=== PATIENT | female | born 1990 | race Hispanic/Latino ===

== ENCOUNTER 2018-12-12 15:24 | Emergency (ER) | payer SELFPAY ==
[2018-12-12] MEDS ORDERED: IBUPROFEN 600 MG TABLET ONE (16:52)
[2018-12-12] MEDS ORDERED: TETANUS/DIPHTHERIA TOXOID [ADULT] 0.5 ML VIAL IM ONE (17:44)
== END 2018-12-12 17:50 | disposition home or self-care (01) ==
LOC: EDH 15:24
DX: S13.8XXA Sprain of joints and ligaments of other parts of neck, initial encounter (principal); S39.012A Strain of muscle, fascia and tendon of lower back, initial encounter; S80.211A Abrasion, right knee, initial encounter; S50.311A Abrasion of right elbow, initial encounter; E11.9 Type 2 diabetes mellitus without complications; W01.0XXA Fall on same level from slipping, tripping and stumbling without subsequent striking against object, initial encounter; Y93.89 Activity, other specified; Y92.89 Other specified places as the place of occurrence of the external cause; Y99.8 Other external cause status
CPT/HCPCS: 72040; 72100; 81025; 90471; 90714

== ENCOUNTER 2019-12-07 14:26 | Emergency (ER) | payer OTHER, SELFPAY | END 2019-12-07 15:37 | disposition home or self-care (01) | LOC: EDH 14:26 | DX: R50.81 Fever presenting with conditions classified elsewhere (principal); Z20.828 Contact with and (suspected) exposure to other viral communicable diseases; M79.10 Myalgia, unspecified site; E11.9 Type 2 diabetes mellitus without complications; Z79.899 Other long term (current) drug therapy | CPT/HCPCS: 99281 ==

== ENCOUNTER 2019-12-14 23:01 | Inpatient (IN) | payer OTHER, SELFPAY ==
[~2019-12-14] VITALS: Ht 157.5 cm; Wt 115.5 kg
[2019-12-15 01:20] LABS: BASOPHILS % (AUTO) 0.1 % (0.0-5.0); HEMATOCRIT 42.1 % (36-48); LYMPHOCYTES % (AUTO) 24.9 % (21.0-51.0); MEAN CORPUSCULAR HEMOGLOBIN 29.3 pg (27.0-33.0); MEAN CORPUSCULAR HGB CONC 33.5 g/dL (32.0-36.0); MEAN CORPUSCULAR VOLUME 87.3 fL (79-99); NEUTROPHILS % (AUTO) 67.9 % (40.0-77.0); PLATELET COUNT (AUTO) 303 K/uL (130-400); RED BLOOD CELL COUNT(AUTO) 4.82 MIL/uL (4.00-5.50); RED CELL DISTRIBUTION WIDTH 12.3 % (11.0-15.5); WHITE BLOOD COUNT (AUTO) 7.6 K/uL (4.8-10.8)
[2019-12-15 01:36] LABS: CARBON DIOXIDE 31 mmol/L (21-32); CHLORIDE 97 mmol/L (101-111); CREATININE 0.7 mg/dL (0.5-1.5); GLOMERULAR FILTR. RATE CALC 105 mL/min (>60); GLUCOSE,RANDOM 158 mg/dL (70-105); POTASSIUM 3.6 mmol/L (3.5-5.1); SODIUM SERUM 138 mmol/L (136-145); UREA NITROGEN, BLOOD 6 mg/dL (7-18)
[2019-12-15 01:40] LABS: INR 0.92 (0.85-1.15); PARTIAL THROMBOPLASTIN TIME 30.7 SEC (26.3-35.5)
[2019-12-15 01:49] LABS: ALANINE AMINOTRANSFERASE 56 U/L (12-78); ALBUMIN 3.5 g/dL (3.5-5.0); ASPARTATE AMINOTRANSFERASE 24 U/L (10-37); BILIRUBIN,TOTAL 0.5 mg/dL (0.2-1.0); CREATINE KINASE, TOTAL 20 U/L (21-232); MYOGLOBIN 9 ng/mL (10-92); TROPONIN I < 0.04 ng/mL (0.00-0.06)
[2019-12-15 01:53] LABS: ABG BASE EXCESS -0.2 mmol/L (-2.0-3.0); ABG PCO2 34 mmHg (32-45)
[2019-12-15] MEDS ORDERED: DEXAMETHASONE SOD PHOSPHATE 10MG/ML 1ML VIAL ONE (03:42)
[2019-12-15] MEDS ORDERED: ENOXAPARIN SODIUM 30 MG/0.3 ML SQ ONE (03:43)
[2019-12-15] MEDS ORDERED: ACETAMINOPHEN 325 MG TAB PO PRN ×2 (04:00)
[2019-12-15] MEDS ORDERED: LACTULOSE 20 GM/30 ML UDCUP PO PRN (04:00)
[2019-12-15] MEDS ORDERED: HYDRALAZINE HCL 20 MG/ML VIAL IV PRN (04:00)
[2019-12-15] MEDS ORDERED: ONDANSETRON HCL 4 MG/2 ML VIAL IV PRN (04:00)
[2019-12-15 04:26] LABS: BILIRUBIN,URINE Small (NEGATIVE); COLOR,URINE Dark Yellow (YELLOW); GLUCOSE, URINE (UA) Negative (NEGATIVE); KETONES,URINE 15 mg/dL (NEGATIVE); LEUKOCYTE ESTERASE ,URINE Trace (NEGATIVE); NITRATE,URINE Negative (NEGATIVE); OCCULT BLOOD,URINE Negative (NEGATIVE); PROTEIN,URINE 300 mg/dL (NEGATIVE)
[2019-12-15 04:27] LABS: APPEARANCE,URINE SLIGHTLY CLOUDY (CLEAR)
[2019-12-15 04:42] LABS: BACTERIA,URINE Few /HPF (None Seen); MUCUS,URINE Few LPF (None Seen); RBC,URINE 0-1 /HPF (0-1)
[2019-12-15] MEDS ORDERED: METHYLPREDNISOLONE SOD SUCC 40MG/ML 1ML ONE ×3 (05:42→21:38)
[2019-12-15] MEDS ORDERED: AZITHROMYCIN 500MG+NS 250ML 250 ML IV ONE (05:42)
[2019-12-15] MEDS ORDERED: CEFTRIAXONE SODIUM 1 GM ONE (05:43)
[2019-12-15] MEDS ORDERED: IPRATROPIUM/ALBUTEROL SULFATE 3 ML SOLUTION IH SCH (06:00)
[2019-12-15] MEDS ORDERED: METHYLPREDNISOLONE SOD SUCC 40MG/ML 1ML IVP SCH (06:00)
[2019-12-15] MEDS ORDERED: LACTOBACILLUS RHAMNOSUS GG 1 EACH CAP.SPRINK PO SCH (07:00)
[2019-12-15] MEDS ORDERED: FAMOTIDINE 20MG TAB 20 MG TAB PO SCH (09:00)
[2019-12-15] MEDS ORDERED: ENOXAPARIN SODIUM 40 MG/0.4 ML SYRINGE SQ SCH (09:00)
[2019-12-15] MEDS ORDERED: METF500S7 PO (11:33)
[2019-12-15] MEDS ORDERED: LISI-613 PO (11:33)
[2019-12-15] MEDS ORDERED: ENOXAPARIN SODIUM 60 MG/0.6 ML SQ ONE (13:15)
[2019-12-15] MEDS ORDERED: FAMOTIDINE 20MG TAB 20 MG TAB ONE ×2 (13:16→21:38)
[2019-12-15] MEDS ORDERED: ALBUTEROL INHALER 90MCG/INH IH ONE (14:27)
--- NOTE | 2019-12-15 15:42 | NUR ---
DCP: HOME WITH FAMILY Sw unable to meet with pt who is in the covut unit. Sw called pt's mother Any Hayes [phone]. Per mother, pt lives with her father Reji Hayes and her siblings and a niece. Pt works at [employer] and is independent of all ADLS, no DME or in home care services reports mother Pt is seen at [facility] for medical care and meds. Plan is pt to [place] to father's home [place]. Addendum: 12/15/19 at 1547 by IRENA GALAN Amended: Links added.
[2019-12-15] MEDS ORDERED: INSULIN HUMULIN R 100 UNIT/ML 3ML ONE (21:39)
[2019-12-15] MEDS ORDERED: ACETAMINOPHEN EXTRA STRENGTH 500 MG TABLET ONE (23:27)
[2019-12-16] MEDS ORDERED: CEFTRIAXONE SODIUM 1 GM ONE (04:33)
[2019-12-16] MEDS ORDERED: METHYLPREDNISOLONE SOD SUCC 40MG/ML 1ML ONE (04:33)
[2019-12-16 05:22] LABS: HEMATOCRIT 38.4 % (36-48); LYMPHOCYTES % (AUTO) 30.6 % (21.0-51.0); MEAN CORPUSCULAR HEMOGLOBIN 28.7 pg (27.0-33.0); MEAN CORPUSCULAR HGB CONC 33.1 g/dL (32.0-36.0); MEAN CORPUSCULAR VOLUME 86.9 fL (79-99); MONOCYTES % (AUTO) 10.4 % (3.0-13.0); NEUTROPHILS % (AUTO) 58.3 % (40.0-77.0); PLATELET COUNT (AUTO) 338 K/uL (130-400); RED BLOOD CELL COUNT(AUTO) 4.42 MIL/uL (4.00-5.50); RED CELL DISTRIBUTION WIDTH 12.3 % (11.0-15.5)
[2019-12-16 05:51] LABS: CREATININE 0.6 mg/dL (0.5-1.5); MAGNESIUM 2.8 mg/dL (1.80-2.40); PHOSPHORUS 4.1 mg/dL (2.5-4.9); POTASSIUM 3.5 mmol/L (3.5-5.1)
[2019-12-16] MEDS ORDERED: FAMOTIDINE 20MG TAB 20 MG TAB ONE (08:21)
[2019-12-16] MEDS ORDERED: AZITHROMYCIN 500MG+NS 250ML 250 ML IV ONE (08:21)
[2019-12-16] MEDS ORDERED: INSULIN HUMULIN R 100 UNIT/ML 3ML ONE (13:25)
[2019-12-16] MEDS ORDERED: ENOXAPARIN SODIUM 60 MG/0.6 ML SQ ONE (13:47)
[2019-12-16] MEDS ORDERED: INSULIN GLARGINE 100 UNITS/ML 10 ML VIAL SQ SCH (19:00)
[2019-12-17] MEDS ORDERED: GLUCAGON 1MG KIT 1 MG ML IM PRN (07:15)
[2019-12-17] MEDS ORDERED: DEXTROSE 50%-WATER 50 ML DISP.SYRIN IV PRN (07:15)
[2019-12-17 07:20] LABS: BASOPHILS % (AUTO) 0.1 % (0.0-5.0); HEMATOCRIT 37.9 % (36-48); LYMPHOCYTES % (AUTO) 26.4 % (21.0-51.0); MEAN CORPUSCULAR HEMOGLOBIN 28.2 pg (27.0-33.0); MEAN CORPUSCULAR HGB CONC 32.5 g/dL (32.0-36.0); MEAN CORPUSCULAR VOLUME 86.9 fL (79-99); MONOCYTES % (AUTO) 9.6 % (3.0-13.0); PLATELET COUNT (AUTO) 403 K/uL (130-400); RED BLOOD CELL COUNT(AUTO) 4.36 MIL/uL (4.00-5.50); RED CELL DISTRIBUTION WIDTH 12.1 % (11.0-15.5); WHITE BLOOD COUNT (AUTO) 8.1 K/uL (4.8-10.8)
[2019-12-17] MEDS ORDERED: INSULIN GLARGINE 100 UNITS/ML 10 ML VIAL SQ SCH (07:30)
[2019-12-17] MEDS ORDERED: INSULIN HUMULIN R 100 UNIT/ML 3ML SQ SCH (07:30)
[2019-12-17 07:39] LABS: CREATININE 0.7 mg/dL (0.5-1.5); POTASSIUM 3.6 mmol/L (3.5-5.1)
[2019-12-17] MEDS ORDERED: ENOXAPARIN SODIUM 60 MG/0.6 ML SQ ONE (08:48)
[2019-12-17] MEDS ORDERED: INSULIN HUMULIN R 100 UNIT/ML 3ML ONE ×2 (08:50→20:51)
[2019-12-18] MEDS ORDERED: AZITHROMYCIN 500MG+NS 250ML 250 ML IV ONE (00:03)
[2019-12-18] MEDS ORDERED: METHYLPREDNISOLONE SOD SUCC 40MG/ML 1ML ONE ×2 (00:03→05:04)
[2019-12-18] MEDS ORDERED: CEFTRIAXONE SODIUM 1 GM ONE (00:03)
[2019-12-18] MEDS ORDERED: LORAZEPAM 2 MG/ML 1 ML VIAL ONE (01:25)
[2019-12-18 03:52] LABS: BASOPHILS % (AUTO) 0.3 % (0.0-5.0); EOSINOPHILS % (AUTO) 0.5 % (0.0-8.0); HEMATOCRIT 38.4 % (36-48); LYMPHOCYTES % (AUTO) 44.7 % (21.0-51.0); MEAN CORPUSCULAR HEMOGLOBIN 28.6 pg (27.0-33.0); MEAN CORPUSCULAR HGB CONC 33.3 g/dL (32.0-36.0); MEAN CORPUSCULAR VOLUME 85.9 fL (79-99); NEUTROPHILS % (AUTO) 46.6 % (40.0-77.0); PLATELET COUNT (AUTO) 391 K/uL (130-400); RED BLOOD CELL COUNT(AUTO) 4.47 MIL/uL (4.00-5.50); WHITE BLOOD COUNT (AUTO) 7.6 K/uL (4.8-10.8)
[2019-12-18 04:08] LABS: CREATININE 0.7 mg/dL (0.5-1.5); POTASSIUM 3.1 mmol/L (3.5-5.1)
[2019-12-18] MEDS ORDERED: INSULIN HUMULIN R 100 UNIT/ML 3ML ONE ×2 (05:05→11:35)
[2019-12-18] MEDS: CEFTRIAXONE SODIUM 1 GM IV SCH (05:30)
[2019-12-18] MEDS: AZITHROMYCIN 500MG+NS 250ML 250 ML IV SCH (06:00)
[2019-12-18] MEDS ORDERED: REMDESIVIR (INVESTIGATIONAL) 100 MG in SODIUM CHLORIDE 0.9% 250 ML IV SCH (08:45)
[2019-12-18] MEDS: LACTOBACILLUS RHAMNOSUS GG 1 EACH CAP.SPRINK PO SCH (09:00)
[2019-12-18] MEDS: ASCORBIC ACID 500 MG TAB PO SCH (09:00)
[2019-12-18] MEDS: ENOXAPARIN SODIUM 60 MG/0.6 ML SQ SCH (09:00)
[2019-12-18] MEDS: ZINC SULFATE 220 CAPSULE PO SCH (09:00)
[2019-12-18] MEDS ORDERED: FAMOTIDINE/PF 20 MG/2 ML VIAL IV ONE (09:28)
[2019-12-18] MEDS ORDERED: ENOXAPARIN SODIUM 40 MG/0.4 ML SYRINGE SQ ONE (09:28)
[2019-12-18 09:59] LABS: HEMOGLOBIN A1C 9.9 % (4.0-6.0)
[2019-12-18] MEDS: INSULIN HUMULIN R 100 UNIT/ML 3ML SQ SCH ×7 (11:30→22:07)
[2019-12-18 12:00] VITALS: BP 112/68
[2019-12-18] MEDS: ALBUTEROL INHALER 90MCG/INH IH SCH ×2 (12:00→17:51)
--- NOTE | 2019-12-18 16:00 | NUR ---
DR. HERRERA AWARE OF CASE STATES WILL SEE LATER.
[2019-12-18 16:19] VITALS: BP 110/62
[2019-12-18 19:11] VITALS: BP 112/64
[2019-12-18] MEDS: METHYLPREDNISOLONE SOD SUCC 40MG/ML 1ML IVP SCH (21:51)
[2019-12-18] MEDS: PANTOPRAZOLE SODIUM 40 MG TABLET.DR PO SCH (21:51)
[2019-12-18] MEDS: INSULIN GLARGINE 100 UNITS/ML 10 ML VIAL SQ SCH (21:55)
[2019-12-18 23:08] VITALS: BP 105/67
[2019-12-19] MEDS ORDERED: MAGNESIUM 2GM PREMIX 50ML 50 ML IV PRN (03:15)
[2019-12-19] MEDS ORDERED: POTASSIUM CHLORIDE 10% ELIXIR 20 MEQ/15 ML UDCUP PO PRN (03:15)
[2019-12-19] MEDS ORDERED: POTASSIUM CHLORIDE 20MEQ/100ML 100 ML IV PRN (03:15)
[2019-12-19] MEDS ORDERED: POTASSIUM CHLORIDE 20 MEQ ERTAB PO PRN (03:15)
[2019-12-19] MEDS ORDERED: LIDOCAINE HCL-MPF 1% 2ML VIAL IJ PRN (03:15)
[2019-12-19 03:56] VITALS: BP 126/68
[2019-12-19] MEDS: AZITHROMYCIN 500MG+NS 250ML 250 ML IV SCH (05:58)
[2019-12-19] MEDS: CEFTRIAXONE SODIUM 1 GM IV SCH (05:58)
[2019-12-19 06:04] LABS: HEMATOCRIT 39.7 % (36-48); MEAN CORPUSCULAR VOLUME 85.2 fL (79-99); PLATELET COUNT (AUTO) 340 K/uL (130-400); RED BLOOD CELL COUNT(AUTO) 4.66 MIL/uL (4.00-5.50); RED CELL DISTRIBUTION WIDTH 11.9 % (11.0-15.5); WHITE BLOOD COUNT (AUTO) 7.3 K/uL (4.8-10.8)
[2019-12-19] MEDS: INSULIN GLARGINE 100 UNITS/ML 10 ML VIAL SQ SCH ×2 (06:18→22:07)
[2019-12-19 06:21] LABS: ALBUMIN 3.3 g/dL (3.5-5.0); BILIRUBIN,TOTAL 0.4 mg/dL (0.2-1.0); CREATININE 0.7 mg/dL (0.5-1.5); MAGNESIUM 2.2 mg/dL (1.80-2.40); TOTAL PROTEIN, SERUM 7.5 g/dL (6.0-8.3)
[2019-12-19 06:45] LABS: EOSINOPHILS % (MANUAL) 2 % (1-6); LYMPHOCYTES % (MANUAL) 22 % (22-44); MONOCYTES % (MANUAL) 6 % (2-9); SEGMENTED NEUTROPHILS % 70 % (40-70)
[2019-12-19 06:46] LABS: MAN.DIFF COMMENT-IMPRESSION MANUAL DIFFERENTIAL; PLATELET MORPHOLOGY COMMENT ADEQUATE
[2019-12-19 07:00] VITALS: BP 126/68
[2019-12-19] MEDS: METHYLPREDNISOLONE SOD SUCC 40MG/ML 1ML IVP SCH ×2 (08:18→19:56)
[2019-12-19] MEDS: LACTOBACILLUS RHAMNOSUS GG 1 EACH CAP.SPRINK PO SCH (08:18)
[2019-12-19] MEDS: ASCORBIC ACID 500 MG TAB PO SCH (08:18)
[2019-12-19] MEDS: PANTOPRAZOLE SODIUM 40 MG TABLET.DR PO SCH (08:18)
[2019-12-19] MEDS: ZINC SULFATE 220 CAPSULE PO SCH (08:18)
[2019-12-19] MEDS: INSULIN HUMULIN R 100 UNIT/ML 3ML SQ SCH ×6 (08:19→22:07)
[2019-12-19] MEDS: ENOXAPARIN SODIUM 60 MG/0.6 ML SQ SCH (08:20)
[2019-12-19 11:00] VITALS: BP 116/70
--- NOTE | 2019-12-19 13:15 | NUR ---
DR. DEVRIES EVALUATED AND EDUCATED THE PT ABOUT RISK AND TREATMENTS OF DIABETES.
--- NOTE | 2019-12-19 14:24 | NUR ---
DR. HERRERA ROUND AND EVALUATED THE PT.
[2019-12-19 16:00] VITALS: BP 127/75
[2019-12-19] MEDS: METFORMIN HCL 500 MG TABLET PO SCH (17:09)
[2019-12-19 20:03] VITALS: BP 135/74
[2019-12-19] MEDS ORDERED: INSULIN GLARGINE 100 UNITS/ML 10 ML VIAL SQ SCH (21:00)
[2019-12-19 23:32] VITALS: BP 119/58
[2019-12-20 03:46] VITALS: BP 102/60
--- NOTE | 2019-12-20 05:00 | NUR ---
PT REMAINED STABLE THROUGHOUT THE NIGHT. NO DISTRESS NOTED.
[2019-12-20] MEDS: AZITHROMYCIN 500MG+NS 250ML 250 ML IV SCH (05:28)
[2019-12-20] MEDS: CEFTRIAXONE SODIUM 1 GM IV SCH (05:28)
[2019-12-20] MEDS: INSULIN HUMULIN R 100 UNIT/ML 3ML SQ SCH ×4 (05:51→12:31)
[2019-12-20] MEDS: INSULIN GLARGINE 100 UNITS/ML 10 ML VIAL SQ SCH (05:53)
[2019-12-20] MEDS: ALBUTEROL INHALER 90MCG/INH IH SCH ×2 (05:55→12:28)
[2019-12-20] MEDS: LACTOBACILLUS RHAMNOSUS GG 1 EACH CAP.SPRINK PO SCH (08:28)
[2019-12-20] MEDS: ZINC SULFATE 220 CAPSULE PO SCH (08:29)
[2019-12-20] MEDS: METFORMIN HCL 500 MG TABLET PO SCH ×2 (08:29→12:31)
[2019-12-20] MEDS: PANTOPRAZOLE SODIUM 40 MG TABLET.DR PO SCH (08:29)
[2019-12-20] MEDS: METHYLPREDNISOLONE SOD SUCC 40MG/ML 1ML IVP SCH (08:29)
[2019-12-20] MEDS: ASCORBIC ACID 500 MG TAB PO SCH (08:30)
[2019-12-20 08:58] VITALS: BP 106/66
[2019-12-20] MEDS ORDERED: ENOXAPARIN SODIUM 40 MG/0.4 ML SYRINGE SQ SCH (09:00)
[2019-12-20] MEDS ORDERED: DEXA6TAB PO (11:39)
[2019-12-20] MEDS ORDERED: INSLAN SQ (11:46)
[2019-12-20] MEDS ORDERED: BLOO-733 MC (11:46)
[2019-12-20 12:46] VITALS: BP 125/68
--- NOTE | 2019-12-20 16:27 | NUR ---
Discharge Patient overall d/c instructions were given including follow ups/covid d/c instructions/ medications/new meds. All questions were answered/ IV and telepack were removed. Dev WILLSON wheeled patient down to private vehicle.
== END 2019-12-20 16:35 | disposition home or self-care (01) | DRG 177 ==
LOC: EDH 23:01 → EDHIP 23:02 → 2DH 12-18 12:29
PROVIDERS: ADMIT Hospitalist; ATTEND Hospitalist
DX: U07.1 COVID-19 (principal); J96.01 Acute respiratory failure with hypoxia; J12.89 Other viral pneumonia; Z68.42 Body mass index [BMI] 45.0-49.9, adult; E66.01 Morbid (severe) obesity due to excess calories; E11.9 Type 2 diabetes mellitus without complications; I10 Essential (primary) hypertension
CPT/HCPCS: 36415; 36600; 71045; 80048; 80053; 81001; 82550; 82728; 82803; 82948; 83036; 83605; 83735; 83874; 84100; 84145; 84484; 85025; 85378; 85610; 85730; 86140; 86850; 86900; 86901; 87040; 87088; 87486; 87581; 87633; 87635; 87798; 87804; 93005; G0378; J0456; J0696; J1100; J1650; J1815; J2060; J2920; J3490; J7050